=== PATIENT | male | born 1985 | race Caucasian/White ===

== ENCOUNTER 2016-03-24 18:57 | Emergency (ER) | payer SELFPAY ==
[~2016-03-24] VITALS: Ht 182.9 cm; Wt 86.4 kg
[~2016-03-24 18:57] MED LIST: AMOXICILLIN 8751 TAB PO; AMOXICILLIN/CLA1 TA1 PO; BACTRIM DS 8001 TAB PO; BLOOD PRESSURE MED; CIALIS2.5 MG PO; CIPRO 100MG TA100 MG PO; CLARITIN 1010 MG/TAB PO; DOXYCYCLINE 10100 MG PO; GABAPENTIN100 MG PO; HYDROXYZINE10 M1 PO; LOPRESSOR50 MG PO; LORATADINE10 MG PO; MULTIPLE VITAMI1 CAP PO; NO HOME MEDICATIONS; NORCO 325 MG-51 TAB PO; NORCO 325 MG-7.1 TAB PO; No Meds; OMEPRAZOLE20 MG PO; PERCOCET 325 MG1 TA2 PO; PHENERGAN 25 TA25 MG PO; PHENERGAN W/CO120 ML PO; PHENYLEPHRINE HC OP; PREDNISONE20 MG PO; PRILOSEC 20MG20 MG PO; PROTONIX 40MG T40 MG PO; SILDENAFIL; TOPROL XL 25MG25 MG; TOPROL XL100 MG PO; ULTRAM 50MG TAB50 MG PO; VICODIN 5/5001 UDTAB PO; ZESTRIL40 MG PO; ZOFRAN ODT4 MG PO
[2016-03-24 19:04] VITALS: TEMP 98.6
[2016-03-24 19:59] VITALS: BP 177/104; PULSE 90
== END 2016-03-24 20:02 | disposition home or self-care (01) ==
LOC: COL.ER 18:57
DX: K64.5 Perianal venous thrombosis (principal); I10 Essential (primary) hypertension

== ENCOUNTER 2016-04-11 09:54 | Emergency (ER) | payer SELFPAY ==
[~2016-04-11] VITALS: Ht 182.9 cm; Wt 86.4 kg
[2016-04-11 09:56] VITALS: BP 147/100; PULSE 94; TEMP 98.1
[2016-04-11] MEDS ORDERED: PERCOCET 325 MG1 TA2 PO ×2 (09:59→10:12)
[2016-04-11] MEDS ORDERED: VIAGRA 25MG TAB25 MG PO (09:59)
[2016-04-11] MEDS ORDERED: PHENYLEPHRINE 10 MG/ML IJ (10:00)
[2016-04-11] MEDS ORDERED: OMEGA-3 1000 MG1 CAP PO (10:00)
== END 2016-04-11 10:19 | disposition home or self-care (01) ==
LOC: COL.ER 09:54
DX: N48.30 Priapism, unspecified (principal)

== ENCOUNTER 2017-04-22 20:51 | Emergency (ER) | payer SELFPAY ==
[~2017-04-22] VITALS: Ht 182.9 cm; Wt 90.9 kg
[~2017-04-22 20:51] MED LIST changes: +OMEGA-3 1000 MG1 CAP PO; +PHENYLEPHRINE 10 MG/ML IJ; +VIAGRA 25MG TAB25 MG PO
[2017-04-22 20:52] VITALS: BP 175/81; TEMP 97
[2017-04-22 22:30] VITALS: PULSE 87
== END 2017-04-22 22:30 | disposition home or self-care (01) ==
LOC: COL.ER 20:51
DX: J11.1 Influenza due to unidentified influenza virus with other respiratory manifestations (principal); I10 Essential (primary) hypertension; F17.210 Nicotine dependence, cigarettes, uncomplicated

== ENCOUNTER 2017-04-24 21:06 | Emergency (ER) | payer SELFPAY ==
[~2017-04-24] VITALS: Ht 182.9 cm; Wt 90.9 kg
[2017-04-24 21:10] VITALS: BP 171/95; TEMP 98.3
[2017-04-24] MEDS ORDERED: PROAIR HFA0.09 MG/AC IH (21:13)
[2017-04-24 21:37] LABS: BASO # 0.1 (0.0-0.2); BASO % 0.9 % (0.0-2.0); EOS # 0.7 (0.0-0.7); EOS % 10.1 % (0-4.0); GRAN # 2.9 (1.4-6.5); GRAN % 43.4 % (42.2-75.2); HEMATOCRIT 46.9 % (42.0-52.0); LYMPH % 30.5 % (20.0-51.0); MEAN CELL VOLUME 89 fl (80.0-100.0); MEAN CORPUSCULAR HEMOGLOBIN 30 pg (27.0-31.0); MEAN CORPUSCULAR HGB CONC 34 g/dl (33.0-37.0); MEAN PLATELET VOLUME 8.8 fl (7.4-10.4); MONO % 14.8 % (1.7-9.3); PLATELET COUNT 189 K/mm3 (130-400); RED BLOOD COUNT 5.29 M/mm3 (4.20-5.60); REDCELL DISTRIBUTION WIDTH-CV 12.4 % (11.5-14.5)
[2017-04-24 21:47] LABS: ALBUMIN 4.5 gm/dL (3.5-5.0); BILIRUBIN,TOTAL 0.2 mg/dL (0.0-1.0); CALCIUM 9.3 mg/dL (8.4-10.2); CREATININE, serum 1.18 mg/dL (0.66-1.25); POTASSIUM 4.1 mmol/L (3.4-5.0); TOTAL PROTEIN 7.3 gm/dL (6.4-8.2)
[2017-04-24] MEDS ORDERED: TESSALON PERLE200 MG PO (22:42)
[2017-04-24 23:06] VITALS: PULSE 87
== END 2017-04-24 23:06 | disposition home or self-care (01) ==
LOC: COL.ER 21:06
PROVIDERS: Emergency Medicine
DX: J10.1 Influenza due to other identified influenza virus with other respiratory manifestations (principal); F17.210 Nicotine dependence, cigarettes, uncomplicated; Z90.89 Acquired absence of other organs
CPT/HCPCS: J1885; J2765; J7030

== ENCOUNTER 2017-08-13 15:38 | Observation (INO) | payer SELFPAY ==
[~2017-08-13] VITALS: Ht 182.9 cm; Wt 96.3 kg
[~2017-08-13 15:38] MED LIST changes: +PROAIR HFA0.09 MG/AC IH; +TESSALON PERLE200 MG PO
[2017-08-13 16:41] LABS: BASO # 0.1 (0.0-0.2); BASO % 0.6 % (0.0-2.0); EOS % 17.7 % (0-4.0); GRAN # 5.9 (1.4-6.5); HEMATOCRIT 44.8 % (42.0-52.0); HEMOGLOBIN 16.1 g/dl (13.5-18.0); LYMPH # 2.6 (1.2-3.4); LYMPH % 22.5 % (20.0-51.0); MEAN CELL VOLUME 85 fl (80.0-100.0); MEAN CORPUSCULAR HEMOGLOBIN 30 pg (27.0-31.0); MEAN CORPUSCULAR HGB CONC 36 g/dl (33.0-37.0); MEAN PLATELET VOLUME 8.6 fl (7.4-10.4); MONO # 0.8 (0.1-0.6); MONO % 6.8 % (1.7-9.3); PLATELET COUNT 247 K/mm3 (130-400); REDCELL DISTRIBUTION WIDTH-CV 12.3 % (11.5-14.5)
[2017-08-13 17:01] LABS: ALANINE AMINOTRANSFERASE 25 U/L (21-72); ALBUMIN 3.8 gm/dL (3.5-5.0); ALKALINE PHOSPHATASE 71 U/L (50-136); ANION GAP 11 mmol/L (7-16); AST,SGOT 23 U/L (15-37); BILIRUBIN,TOTAL 0.3 mg/dL (0.0-1.0); BLOOD UREA NITROGEN 10 mg/dL (9-20); CALCIUM 9.3 mg/dL (8.4-10.2); CARBON DIOXIDE 25 mmol/L (22-30); CHLORIDE 102 mmol/L (98-107); CREATININE, serum 0.99 mg/dL (0.66-1.25); GLUCOSE 130 mg/dL (74-106); LIPASE 13 U/L (23-300); POTASSIUM 3.5 mmol/L (3.4-5.0); SODIUM 138 mmol/L (137-145); TOTAL PROTEIN 6.9 gm/dL (6.4-8.2)
[2017-08-13 17:13] LABS: C-REACTIVE PROTEIN 0.5 mg/dL (0.0-0.9); TROPONIN-I < 0.012 ng/mL (0.000-0.034)
[2017-08-13 17:55] LABS: COLLECTION METHOD CLEAN CATCH
[2017-08-13 18:02] LABS: MUCOUS Present /lpf; PH 6 (5-8); SQUAMOUS EPITHELIAL None Seen /hpf; URINE APPEARANCE Clear; URINE BACTERIA None Seen /hpf; URINE BILIRUBIN Negative (NEGATIVE); URINE BLOOD Negative (NEGATIVE); URINE COLOR Yellow; URINE GLUCOSE Negative (NEGATIVE); URINE KETONE Negative (NEGATIVE); URINE LEUKOCYTE ESTERASE Negative (NEGATIVE); URINE NITRATE Negative (NEGATIVE); URINE PROTEIN(semi-quant) Negative (NEGATIVE); URINE RBC 0-2 /hpf; URINE UROBILINOGEN Negative (NEGATIVE)
[2017-08-13 20:03] VITALS: BP 176/105; PULSE 61; TEMP 97.8
[2017-08-13 23:39] VITALS: BP 158/97; PULSE 73; TEMP 97.6
[2017-08-14 04:14] VITALS: BP 122/98; PULSE 80; TEMP 98.5
[2017-08-14 08:20] VITALS: BP 152/103; PULSE 74; TEMP 97.7
[2017-08-14 11:36] VITALS: BP 162/91; PULSE 66; TEMP 97.8
[2017-08-14 15:24] VITALS: BP 162/97; PULSE 69; TEMP 97.7
[2017-08-14 19:36] VITALS: BP 165/92; PULSE 65; TEMP 98.6
[2017-08-14 23:47] VITALS: BP 148/61; PULSE 71; TEMP 98.2
[2017-08-15 03:36] VITALS: BP 134/86; PULSE 76; TEMP 98
[2017-08-15 07:41] VITALS: BP 152/90; PULSE 65; TEMP 97.5
== END 2017-08-15 10:55 | disposition home or self-care (01) ==
LOC: COL.ER 15:38 → SURG 19:33
PROVIDERS: Emergency Medicine
DX: K56.1 Intussusception (principal); N28.89 Other specified disorders of kidney and ureter; F17.210 Nicotine dependence, cigarettes, uncomplicated
CPT/HCPCS: G0378; J1170; J2405; J7030; Q9967

== ENCOUNTER 2017-08-20 12:18 | Inpatient (IN) | payer BC ==
[~2017-08-20] VITALS: Ht 182.9 cm; Wt 89.2 kg
[2017-10-05] VITALS (10 sets, daily range): BP systolic 136–159; BP diastolic 73–91; PULSE 78–98; TEMP 97.7
[2017-10-05] MEDS ORDERED: NORCO 325 MG-51 TAB PO (09:50)
[2017-10-05] MEDS ORDERED: LOTREL 5/20 CAP1 CAP PO (10:03)
[2017-10-05] MEDS ORDERED: ULTRAM 50MG TAB50 MG PO (10:04)
[2017-10-05 11:28] LABS: HEMATOCRIT 44.1 % (42.0-52.0); HEMOGLOBIN 15.4 g/dl (13.5-18.0)
[2017-10-05 11:45] LABS: CALCIUM 9.2 mg/dL (8.4-10.2); CREATININE, serum 0.88 mg/dL (0.66-1.25); POTASSIUM 3.9 mmol/L (3.4-5.0)
[2017-10-06 00:46] VITALS: BP 145/61; PULSE 87; TEMP 98.2
[2017-10-06 04:37] VITALS: BP 132/68; PULSE 63; TEMP 98.1
[2017-10-06 07:22] LABS: BASO % 0.2 % (0.0-2.0); EOS % 0.1 % (0-4.0); GRAN # 15.4 (1.4-6.5); GRAN % 83.3 % (42.2-75.2); HEMATOCRIT 39.5 % (42.0-52.0); HEMOGLOBIN 13.6 g/dl (13.5-18.0); LYMPH # 1.4 (1.2-3.4); LYMPH % 7.8 % (20.0-51.0); MEAN CELL VOLUME 87 fl (80.0-100.0); MEAN CORPUSCULAR HEMOGLOBIN 30 pg (27.0-31.0); MEAN CORPUSCULAR HGB CONC 34 g/dl (33.0-37.0); MEAN PLATELET VOLUME 9.1 fl (7.4-10.4); MONO # 1.5 (0.1-0.6); MONO % 7.9 % (1.7-9.3); PLATELET COUNT 254 K/mm3 (130-400); RED BLOOD COUNT 4.54 M/mm3 (4.20-5.60); REDCELL DISTRIBUTION WIDTH-CV 12.1 % (11.5-14.5)
[2017-10-06 07:36] LABS: CALCIUM 8.5 mg/dL (8.4-10.2); CREATININE, serum 1.74 mg/dL (0.66-1.25); POTASSIUM 4.8 mmol/L (3.4-5.0)
[2017-10-06 08:41] VITALS: BP 134/59; PULSE 67; TEMP 98.1
[2017-10-06 12:31] VITALS: BP 143/73; PULSE 74; TEMP 98
[2017-10-06 16:38] VITALS: BP 147/72; PULSE 82; TEMP 97.8
[2017-10-06 19:29] VITALS: BP 148/86; PULSE 84; TEMP 97.9
[2017-10-07 00:17] VITALS: BP 132/78; PULSE 76; TEMP 98.5
[2017-10-07 04:42] VITALS: BP 138/64; PULSE 74; TEMP 98.6
[2017-10-07 07:40] LABS: CALCIUM 8.8 mg/dL (8.4-10.2); CREATININE, serum 1.65 mg/dL (0.66-1.25); POTASSIUM 4.7 mmol/L (3.4-5.0)
[2017-10-07 08:29] VITALS: BP 139/77; PULSE 80; TEMP 97.7
[2017-10-07 12:33] VITALS: BP 142/77; PULSE 82; TEMP 98
[2017-10-07 16:11] VITALS: BP 164/87; PULSE 77; TEMP 97.7
[2017-10-07 19:54] VITALS: BP 162/87; PULSE 75; TEMP 98.6
[2017-10-08 04:18] VITALS: BP 148/75; PULSE 61; TEMP 98.8
[2017-10-08 08:03] VITALS: BP 127/60; PULSE 71; TEMP 97.8
[2017-10-08 12:38] VITALS: BP 154/82; PULSE 82; TEMP 98
[2017-10-08 16:25] VITALS: BP 150/71; PULSE 82; TEMP 97.8
[2017-10-08 20:17] VITALS: BP 160/99; PULSE 83; TEMP 97.6
[2017-10-08 23:27] VITALS: BP 158/88; PULSE 63; TEMP 98.5
[2017-10-09 03:00] VITALS: BP 145/84; PULSE 63; TEMP 97.7
[2017-10-09 08:53] VITALS: BP 140/96; PULSE 76; TEMP 97.6
[2017-10-10] MEDS ORDERED: DILAUDID 2MG TAB2 MG PO (20:30)
[2017-10-10] MEDS ORDERED: LOTREL 5/20 CAP1 CAP PO (20:30)
[2017-10-10] MEDS ORDERED: DOXYCYCLINE 10100 MG PO (20:54)
== END 2017-10-09 11:12 | disposition home or self-care (01) | DRG 658 ==
LOC: SURG 09-21 07:30 → INPTSU 10-05 09:27 → SURG 10-05 11:45
PROVIDERS: Nurse Anesthetist, Certified Registered; Surgery; Urology
PROC: 8E0W4CZ Robotic Assisted Procedure of Trunk Region, Percutaneous Endoscopic Approach (ICD-10-PCS; 2017-10-05)
PROC: 0TT04ZZ Resection of Right Kidney, Percutaneous Endoscopic Approach (ICD-10-PCS; principal; 2017-10-05 11:45)
PROC: 0WJP0ZZ Inspection of Gastrointestinal Tract, Open Approach (ICD-10-PCS; 2017-10-05 11:45)
DX: C64.1 Malignant neoplasm of right kidney, except renal pelvis (principal); R10.32 Left lower quadrant pain; I10 Essential (primary) hypertension; K21.9 Gastro-esophageal reflux disease without esophagitis; F17.210 Nicotine dependence, cigarettes, uncomplicated; F32.9 Major depressive disorder, single episode, unspecified; G89.29 Other chronic pain
CPT/HCPCS: A4314; A9284; J0330; J0690; J1100; J1170; J1644; J1885; J2250; J2270; J2405; J2704; J2795; J3010; J7120

== ENCOUNTER 2017-09-16 06:38 | Emergency (ER) | payer SELFPAY ==
[~2017-09-16] VITALS: Ht 182.9 cm; Wt 95.5 kg
[2017-09-16 07:09] LABS: BASO # 0.1 (0.0-0.2); BASO % 0.9 % (0.0-2.0); EOS # 1.1 (0.0-0.7); EOS % 10.6 % (0-4.0); GRAN # 6.2 (1.4-6.5); GRAN % 59.6 % (42.2-75.2); HEMATOCRIT 46.6 % (42.0-52.0); HEMOGLOBIN 16.4 g/dl (13.5-18.0); LYMPH # 2.3 (1.2-3.4); LYMPH % 21.6 % (20.0-51.0); MEAN CELL VOLUME 85 fl (80.0-100.0); MEAN CORPUSCULAR HEMOGLOBIN 30 pg (27.0-31.0); MEAN CORPUSCULAR HGB CONC 35 g/dl (33.0-37.0); MEAN PLATELET VOLUME 8.6 fl (7.4-10.4); MONO # 0.7 (0.1-0.6); MONO % 6.9 % (1.7-9.3); PLATELET COUNT 230 K/mm3 (130-400); RED BLOOD COUNT 5.49 M/mm3 (4.20-5.60); REDCELL DISTRIBUTION WIDTH-CV 12.3 % (11.5-14.5)
[2017-09-16 07:25] LABS: ALBUMIN 4.2 gm/dL (3.5-5.0); BILIRUBIN,TOTAL 0.4 mg/dL (0.0-1.0); CALCIUM 9.2 mg/dL (8.4-10.2); CREATININE, serum 0.92 mg/dL (0.66-1.25); POTASSIUM 3.8 mmol/L (3.4-5.0)
[2017-09-16 08:13] LABS: C-REACTIVE PROTEIN 0.5 mg/dL (0.0-0.9)
[2017-09-16 08:22] LABS: TROPONIN-I < 0.012 ng/mL (0.000-0.034)
[2017-09-16 09:49] LABS: COLLECTION METHOD CLEAN CATCH
[2017-09-16 09:57] LABS: MUCOUS Present /lpf; PH 6 (5-8); SQUAMOUS EPITHELIAL 0-2 /hpf; URINE APPEARANCE Clear; URINE BACTERIA None Seen /hpf; URINE BILIRUBIN Negative (NEGATIVE); URINE BLOOD Negative (NEGATIVE); URINE COLOR Straw; URINE GLUCOSE Negative (NEGATIVE); URINE KETONE Negative (NEGATIVE); URINE LEUKOCYTE ESTERASE Negative (NEGATIVE); URINE NITRATE Negative (NEGATIVE); URINE PROTEIN(semi-quant) Negative (NEGATIVE); URINE RBC None Seen /hpf; URINE UROBILINOGEN Negative (NEGATIVE)
[2017-09-16 10:24] VITALS: BP 152/98; PULSE 69; TEMP 97.4
== END 2017-09-16 10:24 | disposition home or self-care (01) ==
LOC: COL.ER 06:38
PROVIDERS: Emergency Medicine
DX: R10.32 Left lower quadrant pain (principal); R10.12 Left upper quadrant pain; F17.210 Nicotine dependence, cigarettes, uncomplicated; D49.511 Neoplasm of unspecified behavior of right kidney; Z98.890 Other specified postprocedural states
CPT/HCPCS: J1885; J2405; J7030; Q9967

== ENCOUNTER 2017-10-10 20:16 | Emergency (ER) | payer BC ==
[~2017-10-10] VITALS: Ht 182.9 cm; Wt 87.3 kg
[~2017-10-10 20:16] MED LIST changes: +LOTREL 5/20 CAP1 CAP PO
[2017-10-10 20:21] VITALS: BP 169/110; PULSE 99; TEMP 98.6
[2017-10-10] MEDS ORDERED: LOTREL 5/20 CAP1 CAP PO (20:30)
[2017-10-10] MEDS ORDERED: DILAUDID 2MG TAB2 MG PO (20:30)
[2017-10-10] MEDS ORDERED: DOXYCYCLINE 10100 MG PO (20:54)
== END 2017-10-10 21:09 | disposition home or self-care (01) ==
LOC: COL.ER 20:16
DX: T81.4XXA Infection following a procedure, initial encounter (principal); L03.311 Cellulitis of abdominal wall; Z87.891 Personal history of nicotine dependence; Z98.890 Other specified postprocedural states; Z90.89 Acquired absence of other organs; Z90.5 Acquired absence of kidney

== ENCOUNTER → 2018-02-14 | Outpatient (CLI) | payer BC ==
[~2018-02-14] MED LIST changes: +DILAUDID 2MG TAB2 MG PO
== END ==
LOC: COL.RAD 07:07
DX: R10.11 Right upper quadrant pain (principal); Z90.5 Acquired absence of kidney

== ENCOUNTER → 2018-02-16 | Outpatient (CLI) | payer BC | LOC: COL.RAD 07:09 | DX: R10.11 Right upper quadrant pain (principal) | CPT/HCPCS: A9537 ==

== ENCOUNTER 2018-05-01 10:45 | Emergency (ER) | payer BC ==
[~2018-05-01] VITALS: Ht 182.9 cm; Wt 100.9 kg
[2018-05-01 10:59] VITALS: BP 118/81; PULSE 67; TEMP 97.7
[2018-05-01] MEDS ORDERED: BYSTOLIC5 MG PO (14:13)
[2018-05-01] MEDS ORDERED: NORCO 325 MG-51 TAB PO (14:45)
[2018-05-01] MEDS ORDERED: CLEOCIN HCL300 MG PO (14:45)
== END 2018-05-01 15:15 | disposition home or self-care (01) ==
LOC: COL.ER 10:45
DX: R68.84 Jaw pain (principal); I10 Essential (primary) hypertension; F17.210 Nicotine dependence, cigarettes, uncomplicated; Z23 Encounter for immunization; Z85.528 Personal history of other malignant neoplasm of kidney; Z90.5 Acquired absence of kidney

== ENCOUNTER 2018-05-17 10:33 | Emergency (ER) | payer BC ==
[~2018-05-17] VITALS: Ht 182.9 cm; Wt 100.0 kg
[~2018-05-17 10:33] MED LIST changes: +BYSTOLIC5 MG PO; +CLEOCIN HCL300 MG PO
[2018-05-17 10:53] VITALS: TEMP 98.3
[2018-05-17 12:33] VITALS: BP 130/76; PULSE 80
== END 2018-05-17 12:34 | disposition home or self-care (01) ==
LOC: COL.ER 10:33
DX: N48.30 Priapism, unspecified (principal); F32.9 Major depressive disorder, single episode, unspecified; F17.210 Nicotine dependence, cigarettes, uncomplicated; Z90.89 Acquired absence of other organs

== ENCOUNTER 2018-05-21 08:12 | Emergency (ER) | payer BC ==
[~2018-05-21] VITALS: Ht 182.9 cm; Wt 100.0 kg
[2018-05-21 08:17] VITALS: TEMP 97.8
[2018-05-21 11:31] VITALS: BP 120/68; PULSE 76
== END 2018-05-21 11:32 | disposition home or self-care (01) ==
LOC: COL.ER 08:12
DX: N48.30 Priapism, unspecified (principal); F17.210 Nicotine dependence, cigarettes, uncomplicated; I10 Essential (primary) hypertension; Z85.528 Personal history of other malignant neoplasm of kidney

== ENCOUNTER 2018-09-18 18:14 | Emergency (ER) | payer BC ==
[~2018-09-18] VITALS: Ht 182.9 cm; Wt 91.8 kg
[2018-09-18 18:17] VITALS: TEMP 98.5
[2018-09-18 18:56] LABS: BASO # 0.1 (0.0-0.2); BASO % 0.7 % (0.0-2.0); EOS # 0.4 (0.0-0.7); EOS % 4.1 % (0-4.0); GRAN # 5.2 (1.4-6.5); GRAN % 57.9 % (42.2-75.2); HEMATOCRIT 42.4 % (42.0-52.0); HEMOGLOBIN 14.7 g/dl (13.5-18.0); LYMPH # 2.5 (1.2-3.4); LYMPH % 28.1 % (20.0-51.0); MEAN CELL VOLUME 88 fl (80.0-100.0); MEAN CORPUSCULAR HEMOGLOBIN 31 pg (27.0-31.0); MEAN CORPUSCULAR HGB CONC 35 g/dl (33.0-37.0); MEAN PLATELET VOLUME 8.6 fl (7.4-10.4); MONO # 0.8 (0.1-0.6); PLATELET COUNT 243 K/mm3 (130-400); RED BLOOD COUNT 4.81 M/mm3 (4.20-5.60); REDCELL DISTRIBUTION WIDTH-CV 12.1 % (11.5-14.5)
[2018-09-18] MEDS ORDERED: WELLBUTRIN XL300 M1 PO (18:57)
[2018-09-18 19:05] LABS: ALANINE AMINOTRANSFERASE 13 U/L (21-72); ALBUMIN 4.6 gm/dL (3.5-5.0); ALKALINE PHOSPHATASE 54 U/L (50-136); ANION GAP 13 mmol/L (7-16); AST,SGOT 23 U/L (15-37); BILIRUBIN,TOTAL 0.4 mg/dL (0.0-1.0); BLOOD UREA NITROGEN 23 mg/dL (9-20); CALCIUM 10.1 mg/dL (8.4-10.2); CARBON DIOXIDE 22 mmol/L (22-30); CHLORIDE 105 mmol/L (98-107); CREATINE KINASE 151 U/L (55-170); CREATININE, serum 2.17 (0.66-1.25); GLUCOSE 113 mg/dL (74-106); LIPASE 36 U/L (23-300); POTASSIUM 4.8 mmol/L (3.4-5.0); SODIUM 140 mmol/L (137-145); TOTAL PROTEIN 7.5 gm/dL (6.4-8.2)
[2018-09-18 19:06] LABS: C-REACTIVE PROTEIN < 0.5 mg/dL (0.0-0.9)
[2018-09-18 20:02] LABS: COLLECTION METHOD CLEAN CATCH
[2018-09-18 20:09] LABS: MUCOUS Present /lpf; PH 6 (5-8); SQUAMOUS EPITHELIAL None Seen /hpf; URINE APPEARANCE Clear; URINE BACTERIA None Seen /hpf; URINE BILIRUBIN Negative (NEGATIVE); URINE BLOOD Negative (NEGATIVE); URINE COLOR Yellow; URINE GLUCOSE Negative (NEGATIVE); URINE KETONE Negative (NEGATIVE); URINE LEUKOCYTE ESTERASE Negative (NEGATIVE); URINE NITRATE Negative (NEGATIVE); URINE PROTEIN(semi-quant) Negative (NEGATIVE); URINE RBC 0-2 /hpf; URINE UROBILINOGEN Negative (NEGATIVE)
[2018-09-18 20:49] VITALS: BP 115/61; PULSE 81
== END 2018-09-18 20:52 | disposition home or self-care (01) ==
LOC: COL.ER 18:14
PROVIDERS: Emergency Medicine
DX: R10.9 Unspecified abdominal pain (principal); N19 Unspecified kidney failure; F17.210 Nicotine dependence, cigarettes, uncomplicated; I10 Essential (primary) hypertension; Z85.528 Personal history of other malignant neoplasm of kidney
CPT/HCPCS: J2405; J3010; J7030

== ENCOUNTER 2018-10-09 12:25 | Emergency (ER) | payer BC ==
[~2018-10-09] VITALS: Ht 182.9 cm; Wt 91.8 kg
[~2018-10-09 12:25] MED LIST changes: +WELLBUTRIN XL300 M1 PO
[2018-10-09 12:33] VITALS: TEMP 98.2
[2018-10-09 13:22] LABS: COLLECTION METHOD CLEAN CATCH
[2018-10-09 13:25] LABS: BASO # 0.1 (0.0-0.2); BASO % 0.7 % (0.0-2.0); EOS # 0.5 (0.0-0.7); EOS % 4.9 % (0-4.0); HEMATOCRIT 44.6 % (42.0-52.0); HEMOGLOBIN 15.3 g/dl (13.5-18.0); LYMPH # 2.3 (1.2-3.4); LYMPH % 23.2 % (20.0-51.0); MEAN CELL VOLUME 89 fl (80.0-100.0); MEAN CORPUSCULAR HEMOGLOBIN 30 pg (27.0-31.0); MEAN CORPUSCULAR HGB CONC 34 g/dl (33.0-37.0); MEAN PLATELET VOLUME 8.4 fl (7.4-10.4); MONO # 0.9 (0.1-0.6); MONO % 8.9 % (1.7-9.3); PLATELET COUNT 245 K/mm3 (130-400); RED BLOOD COUNT 5.04 M/mm3 (4.20-5.60); REDCELL DISTRIBUTION WIDTH-CV 12.4 % (11.5-14.5)
[2018-10-09 13:29] LABS: PH 5 (5-8); SQUAMOUS EPITHELIAL None Seen /hpf; URINE APPEARANCE Clear; URINE BACTERIA None Seen /hpf; URINE BILIRUBIN Negative (NEGATIVE); URINE BLOOD Negative (NEGATIVE); URINE COLOR Yellow; URINE GLUCOSE Negative (NEGATIVE); URINE KETONE Negative (NEGATIVE); URINE LEUKOCYTE ESTERASE Negative (NEGATIVE); URINE NITRATE Negative (NEGATIVE); URINE PROTEIN(semi-quant) Negative (NEGATIVE); URINE RBC 0-2 /hpf; URINE UROBILINOGEN Negative (NEGATIVE)
[2018-10-09 13:41] LABS: ALANINE AMINOTRANSFERASE 26 U/L (21-72); ALBUMIN 4.8 gm/dL (3.5-5.0); ALKALINE PHOSPHATASE 47 U/L (50-136); ANION GAP 11 mmol/L (7-16); AST,SGOT 28 U/L (15-37); BILIRUBIN,TOTAL 0.4 mg/dL (0.0-1.0); BLOOD UREA NITROGEN 17 mg/dL (9-20); CALCIUM 9.8 mg/dL (8.4-10.2); CARBON DIOXIDE 24 mmol/L (22-30); CHLORIDE 107 mmol/L (98-107); CREATINE KINASE 61 U/L (55-170); CREATININE, serum 1.35 (0.66-1.25); GLUCOSE 95 mg/dL (74-106); MAGNESIUM 2.1 mg/dL (1.6-2.3); POTASSIUM 4.4 mmol/L (3.4-5.0); SODIUM 141 mmol/L (137-145); TOTAL PROTEIN 7.7 gm/dL (6.4-8.2)
[2018-10-09 13:45] LABS: C-REACTIVE PROTEIN < 0.5 mg/dL (0.0-0.9)
[2018-10-09] MEDS ORDERED: TYLENOL 500MG500 MG PO (15:41)
[2018-10-09] MEDS ORDERED: NORCO 325 MG-51 TAB PO (16:00)
[2018-10-09 16:10] VITALS: BP 116/72; PULSE 58
== END 2018-10-09 16:12 | disposition home or self-care (01) ==
LOC: COL.ER 12:25
PROVIDERS: Physician Assistant
DX: M25.50 Pain in unspecified joint (principal); I12.9 Hypertensive chronic kidney disease with stage 1 through stage 4 chronic kidney disease, or unspecified chronic kidney disease; M79.10 Myalgia, unspecified site; I10 Essential (primary) hypertension; N18.9 Chronic kidney disease, unspecified; F17.210 Nicotine dependence, cigarettes, uncomplicated; Z85.528 Personal history of other malignant neoplasm of kidney; Z98.890 Other specified postprocedural states; Z90.5 Acquired absence of kidney; Z90.89 Acquired absence of other organs
CPT/HCPCS: J2405; J3010; J7030

== ENCOUNTER 2019-01-27 16:37 | Day surgery (SDC) | payer BC ==
[~2019-01-27] VITALS: Ht 182.9 cm; Wt 94.8 kg
[~2019-01-27 16:37] MED LIST changes: +TYLENOL 500MG500 MG PO
[2019-01-27 18:33] LABS: HEMATOCRIT 45.2 % (42.0-52.0); HEMOGLOBIN 15.8 g/dl (13.5-18.0); MEAN CELL VOLUME 88 fl (80.0-100.0); MEAN CORPUSCULAR HEMOGLOBIN 31 pg (27.0-31.0); MEAN CORPUSCULAR HGB CONC 35 g/dl (33.0-37.0); MEAN PLATELET VOLUME 8.7 fl (7.4-10.4); PLATELET COUNT 298 K/mm3 (130-400); RED BLOOD COUNT 5.14 M/mm3 (4.20-5.60); REDCELL DISTRIBUTION WIDTH-CV 12.1 % (11.5-14.5)
[2019-01-27 18:50] LABS: ALBUMIN 5.1 gm/dL (3.5-5.0); BILIRUBIN,TOTAL 0.8 mg/dL (0.0-1.0); C-REACTIVE PROTEIN 0.9 mg/dL (0.0-0.9); CALCIUM 10.1 mg/dL (8.4-10.2); CREATININE, serum 1.56 (0.66-1.25); POTASSIUM 4.1 mmol/L (3.4-5.0); TOTAL PROTEIN 8.6 gm/dL (6.4-8.2)
[2019-01-27 18:52] LABS: BAND 6 % (0-10); EOSINOPHIL 1 % (0-4); LYMPHOCYTE 7 % (20.0-51.0); NEUTROPHILS 82 % (42.0-75.2); PLATELET ESTIMATE NORMAL (NORMAL)
[2019-01-27 21:14] LABS: COLLECTION METHOD CLEAN CATCH
[2019-01-27 21:20] LABS: MUCOUS Present /lpf; PH 7 (5-8); SQUAMOUS EPITHELIAL None Seen /hpf; URINE APPEARANCE Clear; URINE BACTERIA None Seen /hpf; URINE BILIRUBIN Negative (NEGATIVE); URINE BLOOD Negative (NEGATIVE); URINE COLOR Yellow; URINE GLUCOSE Negative (NEGATIVE); URINE KETONE Negative (NEGATIVE); URINE LEUKOCYTE ESTERASE Negative (NEGATIVE); URINE NITRATE Negative (NEGATIVE); URINE PROTEIN(semi-quant) Negative (NEGATIVE); URINE RBC 0-2 /hpf; URINE UROBILINOGEN Negative (NEGATIVE)
[2019-01-27 23:16] VITALS: BP 145/81; PULSE 75; TEMP 97.9
[2019-01-27 23:39] VITALS: BP 135/74; PULSE 80
[2019-01-27 23:54] VITALS: BP 144/56; PULSE 82
[2019-01-28] VITALS (7 sets, daily range): BP systolic 127–163; BP diastolic 57–87; PULSE 76–89; TEMP 98–98.8
--- NOTE | 2019-01-28 01:21 | NUR ---
PATIENT TO ROOM 348 AT 2310. ALERT AND ORIENTED. C/O 7/10 MODERATE PAIN TO ABD AND SLIGHT NAUSEA. STATES HIS THROAT IS SORE. GIVEN PRN NORCO, MORPHINE, AND ZOFRAN. X3 LAPS WITH SWIFTSET OPEN TO AIR. PATIENT AMBULATED TO BATHROOM WITHOUT ISSUE. HAD UNMEASURED VOID. TOLERATED CLEARS TO GENERAL DIET WITHOUT ISSUE. FAMILY AT BEDSIDE. NO FURTHER NEEDS AT THIS TIME. WILL CONTINUE TO MONITOR.
[2019-01-28] MEDS ORDERED: OXAYDO7.5 MG PO (10:37)
--- NOTE | 2019-01-28 10:57 | NUR ---
Patient was sleeping.
--- NOTE | 2019-01-28 12:00 | NUR ---
Patient is discharging home. Discharge instructions discussed with patient. Explained to call Wednesday for follow up appointment and showed him where the phone number is on his discharge papaerwork. Explained he has a prescription to take to the pharmacy to get filled. Copies of discharge instructions given to patient. Patient walked out with Lillian RODRIGUEZ. All belongings sent with patient.
--- NOTE | 2019-01-28 14:11 | NUR ---
SW met with patient about discharge. patient reports that he quezada dme blood pressure monitor. Patient reports that he has a follow up with Dr. Metz PCP this upcoming Wednesday. Selma indicated that his mother is his EMR contact and that we have it on file. Patient reports that does not have a DPOA. Patient reports that he resides in [place] and can transport himself. No additonal needs identified. Patient was educated on additional services and resources.
== END 2019-01-28 12:00 | disposition home or self-care (01) ==
LOC: SDCO 16:37 → SURG 16:37 → COL.ER 16:37 → SURG 20:30 → COL.ER 21:04 → EDSTATUS 22:45 → SURG 22:46 → SDCO 01-28 12:00
PROVIDERS: Emergency Medicine
DX: K35.80 Unspecified acute appendicitis (principal); I10 Essential (primary) hypertension; G89.29 Other chronic pain; F17.210 Nicotine dependence, cigarettes, uncomplicated; K21.9 Gastro-esophageal reflux disease without esophagitis; F32.9 Major depressive disorder, single episode, unspecified; M16.9 Osteoarthritis of hip, unspecified; Z90.5 Acquired absence of kidney; Z85.528 Personal history of other malignant neoplasm of kidney
CPT/HCPCS: OP; A4216; J0696; J1170; J2270; J2405; J2704; J3010; J7030